=== PATIENT | female | born 1955 | race Hispanic/Latino ===

== ENCOUNTER 2024-03-11 09:00 | Day surgery (SDC) | payer MEDICARE ==
[2024-03-07 09:18] LABS: BASOPHILS # (AUTO) 0.1 (0.0-0.1); BASOPHILS % 1.4 % (0.0-1.0); EOSINOPHILS # (AUTO) 0.1 (0.0-0.4); EOSINOPHILS % 2.1 % (0.0-6.0); HEMATOCRIT 45.3 % (34.2-44.1); HEMOGLOBIN 14.7 g/dL (12.0-16.0); LYMPHOCYTES # (AUTO) 1.8 (1.0-3.2); LYMPHOCYTES % 30.7 % (18.0-39.1); MEAN CORPUSCULAR HEMOGLOBIN 32.6 pg (28-32); MEAN CORPUSCULAR HGB CONC 32.5 g/dL (31-35); MEAN CORPUSCULAR VOLUME 100.4 fL (81-99); MONOCYTES # (AUTO) 0.6 (0.2-0.8); MONOCYTES % 10.6 % (4.4-11.3); NEUTROPHILS # (AUTO) 3.2 (2.1-6.9); NEUTROPHILS % 54.9 % (38.7-80.0); PLATELET COUNT 243 x10e3/uL (140-360); RED BLOOD COUNT 4.51 x10e6/uL (3.6-5.1); RED CELL DISTRIBUTION WIDTH 12.1 % (11.7-14.4); WHITE BLOOD COUNT 5.77 x10e3/uL (4.8-10.8)
[2024-03-07 09:45] LABS: ALBUMIN 4.3 g/dL (3.5-5.0); ALBUMIN/GLOBULIN RATIO 1.1 (0.8-2.0); ANION GAP 16.5 mmol/L (8-16); BILIRUBIN,TOTAL 0.5 mg/dL (0.2-1.2); CALCIUM 10.9 mg/dL (8.4-10.2); CHOL/HDL RATIO 3.2 (3.0-3.6); CREATININE, SERUM 0.68 mg/dL (0.57-1.11); POTASSIUM 4.5 mmol/L (3.5-5.1); TOTAL PROTEIN 8.1 g/dL (6.5-8.1)
[2024-03-11] VITALS (14 sets, daily range): BP systolic 104–154; BP diastolic 72–91; PULSE 81–89; RESP 17; TEMP 96.8–97; O2SAT 100
[~2024-03-11] VITALS: Ht 167.6 cm; Wt 82.1 kg
[2024-03-11] MEDS: ALPRAZOLAM 0.5 MG TAB ONE (08:44)
[2024-03-11] MEDS: DIPHENHYDRAMINE HCL 25 MG CAP ONE (08:44)
[~2024-03-11 09:00] MED LIST: AMLODIPINE BESYL5 MG PO; ASPIRIN EC81 MG PO; CYMBALTA30 MG; FENTANYL CITRATE/PF 100MCG/2 ML INJ ONE; HEPARIN SOD (PORCINE) 1000 UNIT/ML 30ML ONE; HEPARIN SOD/SOD CHLORIDE 2,000 ML ONE; HYDROCODON-ACE1 EAC9; IOPAMIDOL 370 MG/ML 100 ML INFUS..BTL INJ ONE; JARDIANCE25 MG; LANTUS 3ML100 UNITS/; LIDOCAINE HCL 2% LOCAL 20 ML VIAL ONE; LIPITOR20 MG PO; LOSARTAN POTASS25 MG PO; METFORMIN HCL500 MG PO; MIDAZOLAM HCL 2 MG/2 ML VIAL ONE; MULTI-VITAMIN1 EACH PO; NEXIUM40 MG PO; NITROGLYCERIN/D5W 200 MCG/ML 250 ML ONE; OZEMPIC1 MG/0.71; SODIUM CHLORIDE 0.9% 1000ML 0 ML ONE; STOOL SOFTENER50 MG; VITAMIN D250 MCG; XARELTO10 MG PO
[2024-03-11] MEDS ORDERED: SODIUM CHLORIDE 0.9% 1000ML 1,000 ML ONE (09:22)
[2024-03-11] MEDS ORDERED: VERAPAMIL HCL 2.5 MG/ML 2 ML VIAL ONE (09:22)
[2024-03-11] MEDS ORDERED: MIDAZOLAM HCL 2 MG/2 ML VIAL ONE ×2 (09:44→10:30)
[2024-03-11] MEDS ORDERED: IOPAMIDOL 370 MG/ML 100 ML INFUS..BTL INJ ONE (10:00)
[2024-03-11] MEDS ORDERED: FENTANYL CITRATE/PF 100MCG/2 ML INJ ONE (10:30)
== END 2024-03-11 15:40 | disposition home or self-care (01) ==
LOC: CATH LAB 09:00
PROVIDERS: ATTEND Internal Medicine
DX: I73.89 Other specified peripheral vascular diseases (principal); I20.89 Other forms of angina pectoris; I10 Essential (primary) hypertension; E78.5 Hyperlipidemia, unspecified; E11.9 Type 2 diabetes mellitus without complications; J44.9 Chronic obstructive pulmonary disease, unspecified; Z01.812 Encounter for preprocedural laboratory examination; Z79.4 Long term (current) use of insulin; Z79.84 Long term (current) use of oral hypoglycemic drugs; Z79.85 Long-term (current) use of injectable non-insulin antidiabetic drugs; Z79.02 Long term (current) use of antithrombotics/antiplatelets; Z79.82 Long term (current) use of aspirin; Z79.899 Other long term (current) drug therapy; Z68.34 Body mass index [BMI] 34.0-34.9, adult; Z82.49 Family history of ischemic heart disease and other diseases of the circulatory system
CPT/HCPCS: 36415; 37228; 75625; 76937; 80053; 80061; 85025; 85347; C1760; C1769 ×3; C1887 ×2; C1894; J1644; J2003; J2250; J3010; J7030; Q9967; 75716; 99152; 99153